=== PATIENT | female | born 1970 | race Caucasian/White ===

== ENCOUNTER 2021-01-02 09:04 | Outpatient (CLI) | payer OTHER ==
[2021-01-02] MEDS ORDERED: IOVERSOL 320 50 ML VIAL ONE (09:11)
[2021-01-02] MEDS ORDERED: IOPAMIDOL-300 50 ML VIAL ONE (09:11)
[2021-01-02] MEDS ORDERED: IOPAMIDOL-300 50 ML VIAL IVP ONE (11:00)
[2021-01-02] MEDS ORDERED: IOVERSOL 320 50 ML VIAL PO ONE (11:00)
--- NOTE | 2021-01-02 13:57 | CT Report ---
PROCEDURE: Abdomen/Pelvis W INDICATIONS: ABD PAIN CONTRAST: IV CONTRAST: Isovue 300 ml: 100 PO CONTRAST: Optiray 320 ml50 TECHNIQUE: After the administration of IV and oral contrast, 5 mm thick sections acquired from the diaphragms to the symphysis. 5 mm thick coronal and sagittal reformats were acquired. For radiation dose reducti on, the following was used: automated exposure control, adjustment of mA and/or kV according to yaneli ent size. COMPARISON: None. FINDINGS: Image quality: Excellent. ABDOMEN: Lung bases: Lung bases are clear. Heart size is normal. Solid organs: Liver and spleen are normal in size and enhancement. Gallbladder is grossly unremarka ble Biliary system is non dilated. Pancreas enhances normally. No adrenal nodules. Right kidney de monstrates a few small cysts, largest of which is in the right interpolar kidney anteriorly, measurin g roughly 15 mm. There are multiple nonobstructing calculi within the left superior pole, interpolar, and inferior pole kidney, with an evolving staghorn calculus in the inferior pole, measuring roughly 20 mm craniocaudal. There is no right hydronephrosis. There is mild left hydronephrosis. There is a left ureteropelvic junction calculus measuring 7 mm. Peritoneum and bowel: Bowel loops demonstrate normal wall thickness and caliber. No free fluid or a ir. Nodes and vessels: No retroperitoneal or mesenteric adenopathy by size criteria. Aorta and inferior vena cava are normal in size. Miscellaneous: No ventral hernias. PELVIS: Genitourinary: Bladder wall thickness is normal. Miscellaneous: No inguinal hernias or adenopathy. Bones: No suspicious bony lesions. No vertebral body compression fractures. IMPRESSION: 1. Multiple nonobstructing left renal calculi including an inferior pole staghorn. 2. Left ureteropelvic junction calculus causing mild left hydronephrosis. Reviewed by: Ave Mireles MD on 01/02/2021 1:56 PM PDT Approved by: Ave Mireles MD on 01/02/2021 1:56 PM PDT Station ID: [id number]
== END 2021-01-02 09:05 | disposition home or self-care (01) ==
LOC: DI 09:04
PROVIDERS: ATTEND Family Medicine
DX: N13.2 Hydronephrosis with renal and ureteral calculous obstruction (principal)
CPT/HCPCS: 74177; Q9967

== ENCOUNTER 2021-03-05 10:31 | Outpatient (CLI) | payer OTHER ==
--- NOTE | 2021-03-05 13:47 | CT Report ---
PROCEDURE: Abdomen/Pelvis WO INDICATIONS: KIDNEY STONE TECHNIQUE: Noncontrast 5 mm thick sections acquired from the diaphragms to the symphysis. 5 mm coronal and sagi ttal reformats were then performed. For radiation dose reduction, the following was used: automated exposure control, adjustment of mA and/or kV according to patient size. COMPARISON: 01/02/2021 FINDINGS: Image quality: Excellent. ABDOMEN: Lung bases: Lung bases are clear. Heart size is normal. Solid organs: Liver and spleen are normal in size. Gallbladder wall does not appear thickened. P ancreas is normal in contours. No adrenal nodules. There is a left-sided ureteral stent seen, with the ends in the expected locations. At the inferior p ole of the left kidney, numerous nodularities stone fragments are seen, with the largest solitary fra gment measuring 11 mm. The overall burden of stones is clearly decreased compared to the 01/02/2021 ex amination. Punctate, potential right-sided kidney stones are seen. No hydronephrosis is seen. The kid neys demonstrate normal size. Peritoneum and bowel: Unenhanced bowel loops demonstrate normal wall thickness and caliber. No free fluid or air. A normal appendix is incidentally noted. Nodes and vessels: No retroperitoneal or mesenteric adenopathy by size criteria. Aorta and inferior vena cava are normal in caliber. Miscellaneous: No ventral hernias. PELVIS: Genitourinary: The bladder is largely decompressed at the time of this study. No focal bladder abnorm alities are seen. The uterus is prominent in size. Miscellaneous: No inguinal hernias or adenopathy. Bones: No suspicious bony lesions. No vertebral body compression fractures. IMPRESSION: Left-sided ureteral stent seen in place. The obstructing left-sided kidney stones are seen, with a decreased burden of stones compared to the prior examination. Incidental note is made of: Normal appendix Reviewed by: Sebastian Carrington MD on 03/05/2021 12:45 PM AKSLADE Approved by: Sebastian Carrington MD on 03/05/2021 12:45 PM AKDT Station ID: [id number]
== END 2021-03-05 10:32 | disposition home or self-care (01) ==
LOC: DI 10:31
PROVIDERS: ATTEND Urology
DX: N20.0 Calculus of kidney (principal)